=== PATIENT | male | born 1990 | race African-American/Black ===

== ENCOUNTER 2020-12-03 05:32 | Emergency (ER) | payer OTHER ==
[~2020-12-03] VITALS: Ht 193 cm; Wt 77.3 kg
[2020-12-03] MEDS ORDERED: FLUORESCEIN SODIUM 1 MG STRIP OD ONE (06:30)
[2020-12-03] MEDS ORDERED: PROPARACAINE HCL 0.5% 15 ML OPHTHALMIC SOLUTION OS ONE (07:00)
[2020-12-03 07:26] VITALS: BP 119/77
== END 2020-12-03 07:45 | disposition home or self-care (01) ==
LOC: EMS 05:32
DX: H10.9 Unspecified conjunctivitis (principal)
CPT/HCPCS: 99283